=== PATIENT | female | born 1995 | race American Indian/Alaskan Native ===

== ENCOUNTER 2016-03-22 15:22 | Outpatient (CLI) | payer MEDICAID ==
[2016-03-22] MEDS ORDERED: LACTATED RINGERS 500 ML IV ONE (17:33)
[2016-03-22] MEDS ORDERED: VISTARIL PO ONE (18:00)
[2016-03-22] MEDS ORDERED: LACTATED RINGERS 1,000 ML ONE (21:11)
[2016-03-22 23:16] VITALS: BP 127/70
== END 2016-03-22 23:35 | disposition home or self-care (01) ==
LOC: TRG 15:22 → LD 15:23 → TRG 23:35
PROVIDERS: ATTEND Obstetrics & Gynecology
DX: O47.9 False labor, unspecified (principal); Z3A.00 Weeks of gestation of pregnancy not specified
CPT/HCPCS: 59025; J7120; 96360; Q0177

== ENCOUNTER 2017-08-01 05:58 | Emergency (ER) | payer SELFPAY ==
[2017-08-01 06:20] VITALS: BP 122/68
[2017-08-01] MEDS ORDERED: AUGMENTIN 875 MG PO ONE (08:07)
[2017-08-01] MEDS ORDERED: SUDAFED 12 HR PO PRN (08:07)
[2017-08-01] MEDS ORDERED: CLARITIN PO ONE (08:08)
--- NOTE | 2017-08-01 08:33 | Emergency Department Report ---
HPI - General Chief Complaint: Earache Time Seen by Provider: 08/01/17 08:03 - HPI HPI: She is a 22-year-old female with no prior medical history of present's ED complaining of stuffy nose, runny nose, facial pain 1-2 days. Patient states feels like throbbing pain on left side of the face. She did not sustain any trauma or any injuries. Patient states minimal intermittent coughing dry, she denies fevers/chills nausea or vomiting. 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 - Surgical History Past Surgical History?: Yes Additional Surgical History: c sect X2 - Social History Smoking Status: Never Smoker Substance Use Type: None - Medications Home Medications: Home Medications Medication Instructions Recorded Confirmed Last Taken Type Amoxicillin/K Clav Tab [Augmentin 1 each PO BID #10 tablet 08/01/17 Unknown Rx 875MG TAB] Loratadine [Claritin] 10 mg PO DAILY #20 tablet 08/01/17 Unknown Rx Pseudoephedrine ER [Sudafed 12 Hr] 120 mg PO Q12HR PRN #12 tablet 08/01/17 Unknown Rx ED Review of Systems ROS: Stated complaint: SEVERE HEADACHE L SIDE FACE CAN'T SLEEP OR Other details as noted in HPI Constitutional: denies: chills, fever Eyes: denies: eye pain, eye discharge, vision change ENT: congestion (nasal). denies: ear pain, throat pain Respiratory: cough (minimal). denies: shortness of breath, wheezing Cardiovascular: denies: chest pain, palpitations Endocrine: no symptoms reported Gastrointestinal: denies: abdominal pain, nausea, diarrhea Genitourinary: denies: urgency, dysuria, discharge Musculoskeletal: denies: back pain, joint swelling, arthralgia Skin: denies: rash, lesions Neurological: denies: headache, weakness, numbness, paresthesias, confusion Psychiatric: denies: anxiety, depression Hematological/Lymphatic: denies: easy bleeding, easy bruising Physical Exam - Physical Exam Vital Signs: Vital Signs 08/01/17 06:11 Temperature 97.4 F L Pulse Rate 87 Respiratory 20 Rate Blood Pressure 122/68 O2 Sat by Pulse 87 Oximetry Physical Exam: GENERAL: Alert and oriented x3, no apparent distress, Normal Gait, atraumatic. HEAD: Head is normocephalic and a-traumatic. EYES: Extra ocular muscles are intact. Pupils are equal, round, and reactive to light and accommodation. EARS: symetrical, atraumatic, non tender, ear canal clear and moderate cerumen, tympanic membrance non inflamed. There is mild fluid seen behind tympanic membrane left sided. gross auditory nml bilaterally. NOSE: Nose symetrical, Nontender,Nares appeared normal. Maxillary and frontal sinus tenderness MOUTH:Mouth is well hydrated and without lesions. Tonsils nonerythematous or swollen, Uvula midline, Tongue not elevated. Mucous membranes are moist. Posterior pharynx clear, no exudate or lesions. Patent airways. NECK: Supple. No lymphadenopathy or thyromegaly. No C-spine tenderness NEUROLOGIC: The patient is cooperative with no focal neurologic deficits. Cranial nerves II through XII are grossly intact. Normal speech. SKIN: Warm and dry, No lesions, No ulceration or induration present. ED Course Vital Signs 08/01/17 06:11 Temperature 97.4 F L Pulse Rate 87 Respiratory 20 Rate Blood Pressure 122/68 O2 Sat by Pulse 87 Oximetry ED Medical Decision Making - Medical Decision Making 22-year-old female presents with sinusitis ED course: Patient received pseudoephedrine, Claritin and ED Discussed the patient she will need antibiotics for a sinus infection. Vital signs are normal patient is in no acute or respiratory distress Patient has no neuro deficit Discussed to follow up with primary care physician in 3-5 days Patient is sent antibiotics pseudoephedrine Claritin. Critical care attestation.: If time is entered above; I have spent that time in minutes in the direct care of this critically ill patient, excluding procedure time. ED Disposition Clinical Impression: Sinusitis Disposition: DC-01 TO HOME OR SELFCARE Is pt being admited?: No Does the pt Need Aspirin: No Condition: Stable Instructions: Sinusitis (ED), Acute Bacterial Rhinosinusitis (ED) Additional Instructions: Make sure to follow up with the primary care physician as discussed. Take all your medications as you've been prescribed. If you have any worsening symptoms or develop new symptoms please return to ED immediately. Prescriptions: Amoxicillin/K Clav Tab [Augmentin 875MG TAB] 1 each PO BID #10 tablet Loratadine [Claritin] 10 mg PO DAILY #20 tablet Pseudoephedrine ER [Sudafed 12 Hr] 120 mg PO Q12HR PRN #12 tablet PRN Reason: Allergy Symptoms Referrals: PRIMARY CARE,MD [Primary Care Provider] - 3-5 Days [facility] [Outside] - 3-5 Days [facility] [Outside] - 3-5 Days Forms: Accompanied Note, Work/School Release Form(ED) Time of Disposition: 08:56
== END 2017-08-01 09:07 | disposition home or self-care (01) ==
LOC: ED 05:58
DX: J32.9 Chronic sinusitis, unspecified (principal); J45.909 Unspecified asthma, uncomplicated
CPT/HCPCS: 99282

== ENCOUNTER 2017-11-29 09:19 | Emergency (ER) | payer MEDICAID ==
[2017-11-29 09:35] VITALS: BP 108/74
[2017-11-29] MEDS ORDERED: BICILLIN L-A IM ONE (13:00)
[2017-11-29] MEDS ORDERED: DECADRON IM ONE (13:00)
--- NOTE | 2017-11-29 13:03 | Emergency Department Report ---
ED ENT HPI - General Chief complaint: Sore Throat Stated complaint: SORE THROAT/BODY PAIN Time Seen by Provider: 11/29/17 12:56 Source: patient Mode of arrival: Ambulatory Limitations: No Limitations - History of Present Illness Initial comments: Patient is a 22-year-old female said 2 days a sore throat. Patient also states is associated body aches as well as mild cough. Patient denies any nausea vomiting or diarrhea. Patient states pain of the throat is 8 out of 10 with swallowing and she also feels pressure in her ears. - Related Data Previous Rx's Medication Instructions Recorded Last Taken Type Amoxicillin/K Clav Tab [Augmentin 1 each PO BID #10 tablet 08/01/17 Unknown Rx 875MG TAB] Loratadine [Claritin] 10 mg PO DAILY #20 tablet 08/01/17 Unknown Rx Pseudoephedrine ER [Sudafed 12 Hr] 120 mg PO Q12HR PRN #12 tablet 08/01/17 Unknown Rx HYDROcodone/ACETAMINOPHEN 15 ml PO Q6HR PRN #150 solution 11/29/17 Unknown Rx [Hydrocodon-Acetamin 7.5-325/15] Allergies Allergy/AdvReac Type Severity Reaction Status Date / Time No Known Allergies Allergy Unverified 03/22/16 17:31 ED Dental HPI - General Chief complaint: Sore Throat Stated complaint: SORE THROAT/BODY PAIN Time Seen by Provider: 11/29/17 12:56 Source: patient Mode of arrival: Ambulatory Limitations: No Limitations - Related Data Previous Rx's Medication Instructions Recorded Last Taken Type Amoxicillin/K Clav Tab [Augmentin 1 each PO BID #10 tablet 08/01/17 Unknown Rx 875MG TAB] Loratadine [Claritin] 10 mg PO DAILY #20 tablet 08/01/17 Unknown Rx Pseudoephedrine ER [Sudafed 12 Hr] 120 mg PO Q12HR PRN #12 tablet 08/01/17 Unknown Rx HYDROcodone/ACETAMINOPHEN 15 ml PO Q6HR PRN #150 solution 11/29/17 Unknown Rx [Hydrocodon-Acetamin 7.5-325/15] Allergies Allergy/AdvReac Type Severity Reaction Status Date / Time No Known Allergies Allergy Unverified 03/22/16 17:31 ED Review of Systems ROS: Stated complaint: SORE THROAT/BODY PAIN Other details as noted in HPI Comment: All other systems reviewed and negative ED Past Medical Hx - Past Medical History Hx Hypertension: No Hx Diabetes: No Hx Deep Vein Thrombosis: No Hx Renal Disease: No Hx Sickle Cell Disease: No Hx Seizures: No Hx Asthma: Yes Hx HIV: No 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 - Surgical History Additional Surgical History: c sect X2 - Social History Smoking Status: Never Smoker Substance Use Type: None - Medications Home Medications: Home Medications Medication Instructions Recorded Confirmed Last Taken Type Amoxicillin/K Clav Tab [Augmentin 1 each PO BID #10 tablet 08/01/17 Unknown Rx 875MG TAB] Loratadine [Claritin] 10 mg PO DAILY #20 tablet 08/01/17 Unknown Rx Pseudoephedrine ER [Sudafed 12 Hr] 120 mg PO Q12HR PRN #12 tablet 08/01/17 Unknown Rx HYDROcodone/ACETAMINOPHEN 15 ml PO Q6HR PRN #150 solution 11/29/17 Unknown Rx [Hydrocodon-Acetamin 7.5-325/15] ED Physical Exam - General Limitations: No Limitations General appearance: alert, in no apparent distress - Head Head exam: Present: atraumatic, normocephalic - Eye Eye exam: Present: normal appearance - ENT ENT exam: Present: mucous membranes moist, other (mild bilateral tonsillar swelling with erythema exudate. There is also palatal petechiae present.) - Neck Neck exam: Present: normal inspection, lymphadenopathy (anterior cervical lymph nodes) - Respiratory Respiratory exam: Present: normal lung sounds bilaterally. Absent: respiratory distress - Cardiovascular Cardiovascular Exam: Present: regular rate, normal rhythm. Absent: systolic murmur, diastolic murmur, rubs, gallop - GI/Abdominal GI/Abdominal exam: Present: soft, normal bowel sounds - Extremities Exam Extremities exam: Present: normal inspection - Back Exam Back exam: Present: normal inspection - Neurological Exam Neurological exam: Present: alert, oriented X3 - Psychiatric Psychiatric exam: Present: normal affect, normal mood - Skin Skin exam: Present: warm, dry, intact, normal color. Absent: rash ED Course Vital Signs 11/29/17 09:26 Temperature 98.9 F Pulse Rate 102 H Respiratory 18 Rate Blood Pressure 108/74 O2 Sat by Pulse 98 Oximetry ED Medical Decision Making - Medical Decision Making Patient is meeting [facility] criteria for treatment with antibiotics and the patient will be given Bicillin Decadron discharged home with pain meds. Critical care attestation.: If time is entered above; I have spent that time in minutes in the direct care of this critically ill patient, excluding procedure time. ED Disposition Clinical Impression: Exudative pharyngitis Disposition: -01 TO HOME OR SELFCARE Is pt being admited?: No Does the pt Need Aspirin: No Condition: Stable Instructions: Pharyngitis (ED) Referrals: PRIMARY CARE, [Primary Care Provider] - 3-5 Days Time of Disposition: 13:03
== END 2017-11-29 13:36 | disposition home or self-care (01) ==
LOC: ED 09:19
DX: J02.9 Acute pharyngitis, unspecified (principal); J45.909 Unspecified asthma, uncomplicated
CPT/HCPCS: 96372; 99282; J0561

== ENCOUNTER 2018-05-22 11:23 | Emergency (ER) | payer MEDICAID ==
--- NOTE | 2018-05-22 12:08 | Emergency Department Report ---
Chief Complaint: Earache Stated Complaint: EAR INFECTION Time Seen by Provider: 05/22/18 12:06 - HPI History of Present Illness: born deaf l ear co b ear pain no impaction on exam pain l ear when pulling tragus rx none pmh asthma psh none cig none etoh none menses now mse completed MSE screening note: Focused history and physical exam performed. Due to findings the following was ordered: ED Disposition for MSE Condition: Stable
[2018-05-22 12:09] VITALS: BP 108/65
--- NOTE | 2018-05-22 12:11 | Emergency Department Report ---
Minor Respiratory - HPI Chief Complaint: Earache Stated Complaint: EAR INFECTION Time Seen by Provider: 05/22/18 12:06 Duration: 2 Days Pain Location: Ear Severity: mild Minor Respiratory: Yes Rhinorrhea, Yes Able to Tolerate Fluids, Yes Ear Pain, No Sore Throat, No Cough, No Sick Contacts, No Hemoptysis, No Chest Pain, No Shortness of Breath, No Fever Other History: pt to er with b ear pain. deaf in l ear. vss. no fever. ears feel full. no cough. ED Review of Systems ROS: Stated complaint: EAR INFECTION Other details as noted in HPI Comment: All other systems reviewed and negative Constitutional: denies: chills Eyes: denies: eye discharge ENT: as per HPI, ear pain Respiratory: denies: cough Cardiovascular: denies: palpitations Endocrine: denies: see HPI Gastrointestinal: denies: abdominal pain Genitourinary: denies: dysuria Musculoskeletal: denies: back pain Skin: denies: lesions Neurological: denies: weakness Psychiatric: denies: anxiety Hematological/Lymphatic: denies: easy bleeding ED Past Medical Hx - Past Medical History Hx Hypertension: No Hx Diabetes: No Hx Deep Vein Thrombosis: No Hx Renal Disease: No Hx Sickle Cell Disease: No Hx Seizures: No Hx Asthma: Yes Hx HIV: No 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 - Surgical History Past Surgical History?: Yes Additional Surgical History: c sect X2 - Family History Family history: no significant - Social History Smoking Status: Never Smoker Substance Use Type: None - Medications Home Medications: Home Medications Medication Instructions Recorded Confirmed Last Taken Type Amoxicillin/K Clav Tab [Augmentin 1 each PO BID #10 tablet 05/22/18 Unknown Rx 875MG TAB] Fluticasone [Flonase] 1 spray NS QDAY #1 bottle 05/22/18 Unknown Rx Loratadine [Claritin] 10 mg PO DAILY #20 tablet 05/22/18 Unknown Rx predniSONE [Deltasone] 20 mg PO DAILY #5 tablet 05/22/18 Unknown Rx Minor Respiratory Exam - Exam General: Vital signs noted. No distress. Alert and acting appropriately. HEENT: Yes Moist Mucous Membranes, No Pharyngeal Erythema, No Pharyngeal Exudates, No Rhinorrhea, No Conjuctival Injection, No Frontal Tenderness Ear: Left TM Erythema, Both EAC Pain, Neither TM Bulge, Neither EAC Discharge Neck: Yes Supple, No Adenopathy Lungs: Yes Good Air Exchange, No Wheezes, No Ronchi, No Stridor, No Cough, No Labored Respirations, No Retractions, No Use of Accessory Muscles, No Other Abnormal Lung Sounds Heart: Yes Regular, No Murmur Abdomen: Yes Normal Bowel Sounds, No Tenderness, No Peritoneal Signs Skin: No Rash, No Edema Neurologic: Alert and oriented, no deficits. Musculoskeletal: Unremarkable. ED Course Vital Signs 05/22/18 12:06 Temperature 98.1 F Pulse Rate 63 Respiratory 18 Rate Blood Pressure 108/65 O2 Sat by Pulse 100 Oximetry ED Medical Decision Making - Medical Decision Making no impaction simple ear dc home Critical care attestation.: If time is entered above; I have spent that time in minutes in the direct care of this critically ill patient, excluding procedure time. ED Disposition Clinical Impression: Otitis media Disposition: DC-01 TO HOME OR SELFCARE Is pt being admited?: No Does the pt Need Aspirin: No Condition: Stable Instructions: Otitis Media (ED) Additional Instructions: meds as ordered today follow up with ENT if persists referral below nothing in ears no qtips motrin or tylenol for pain diet as tolerated Prescriptions: Amoxicillin/K Clav Tab [Augmentin 875MG TAB] 1 each PO BID #10 tablet Loratadine [Claritin] 10 mg PO DAILY #20 tablet predniSONE [Deltasone] 20 mg PO DAILY #5 tablet Fluticasone [Flonase] 1 spray NS QDAY #1 bottle Referrals: MIAN LAURENT MD [Staff Physician] - 3-5 Days Time of Disposition: 12:10
[2018-05-22] MEDS ORDERED: TRIMOX PO ONE (12:13)
[2018-05-22] MEDS ORDERED: DECADRON IM ONE (12:13)
== END 2018-05-22 12:59 | disposition home or self-care (01) ==
LOC: ED 11:23
DX: H66.93 Otitis media, unspecified, bilateral (principal)
CPT/HCPCS: 96372; 99282; J1100

== ENCOUNTER 2018-06-12 15:02 | Emergency (ER) | payer MEDICAID ==
[2018-06-12 15:22] VITALS: BP 112/56
[2018-06-12] MEDS ORDERED: CLARITIN PO ONE (17:16)
[2018-06-12] MEDS ORDERED: TORADOL IM ONE (17:17)
--- NOTE | 2018-06-12 17:20 | Emergency Department Report ---
Minor Respiratory - HPI Chief Complaint: Earache Stated Complaint: EAR PAIN Time Seen by Provider: 06/12/18 17:16 Pain Location: Ear Severity: mild Minor Respiratory: Yes Able to Tolerate Fluids, Yes Ear Pain, No Rhinorrhea, No Sore Throat, No Cough, No Sick Contacts, No Hemoptysis, No Chest Pain, No Shortness of Breath, No Fever Other History: Patient is a 23-year-old -[place] female who comes to the ER complaining of bilateral ear pain. She was seen earlier this month by us. She also states that she followed up with an ENT. They gave her medicines she is to keep her ear is clean and she reports this cannot tell me the name of which she has been using it. Patient also complaining of a headache. PT also complaining of low left back pain after hitting her back when she fell in the bathtub. This was several days ago. She is ambulatory. PMH. NONE. PSH. NONE. RX. NONE ED Review of Systems ROS: Stated complaint: EAR PAIN Other details as noted in HPI Comment: Unobtainable due to pts medical conditions Constitutional: denies: chills Eyes: denies: eye pain ENT: as per HPI. denies: ear pain Respiratory: denies: cough Cardiovascular: denies: as per HPI, palpitations Endocrine: denies: excessive sweating Gastrointestinal: denies: abdominal pain Genitourinary: denies: urgency Musculoskeletal: as per HPI, back pain Skin: denies: lesions Neurological: as per HPI, headache Psychiatric: denies: anxiety Hematological/Lymphatic: denies: as per HPI, easy bleeding 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 No distress. Alert and acting appropriately. LUNGS CTA NO WHEEZING NO SPINE TENDERNESS AMBULATORY NO DYSURIA NO BRUISING OF BACK NEURO INTACT NO FOCAL NEURO DEF HEENT: Yes Pharyngeal Erythema, Yes Moist Mucous Membranes, No Pharyngeal Exudates, No Rhinorrhea, No Conjuctival Injection, No Frontal Tenderness, No Maxillary Tenderness Ear: Both TM Erythema, Neither TM Bulge, Neither EAC Pain, Neither EAC Discharge Neck: Yes Supple, No Adenopathy Lungs: Yes Good Air Exchange, No Wheezes, No Ronchi, No Stridor, No Cough, No Labored Respirations, No Retractions, No Use of Accessory Muscles, No Other Abnormal Lung Sounds Heart: Yes Regular, No Murmur Abdomen: Yes Normal Bowel Sounds, No Tenderness, No Peritoneal Signs Skin: No Rash, No Edema Neurologic: Alert and oriented, no deficits. Musculoskeletal: Unremarkable. ED Course Vital Signs 06/12/18 15:21 Temperature 98.5 F Pulse Rate 100 H Respiratory 20 Rate Blood Pressure 112/56 O2 Sat by Pulse 99 Oximetry ED Medical Decision Making - Medical Decision Making SIMPLE URTI PT HAS ASHTMA W ALLERGIC S/S POLLEN SEASON SP FALL IN TUB BRUISING HER BACK NEURO INTACT NO POINT TENDERNESS MEDICATED FOR PAIN VSS DC HOME WITH FOLLOW UP Vital Signs 06/12/18 15:21 Temperature 98.5 F Pulse Rate 100 H Respiratory 20 Rate Blood Pressure 112/56 O2 Sat by Pulse 99 Oximetry Critical care attestation.: If time is entered above; I have spent that time in minutes in the direct care of this critically ill patient, excluding procedure time. ED Disposition Clinical Impression: Contusion, back, Ear pain Disposition: DC-01 TO HOME OR SELFCARE Is pt being admited?: No Does the pt Need Aspirin: No Condition: Stable Instructions: Sinusitis (ED) Additional Instructions: HYDRATE WELL WITH WATER MEDS ORDERED TODAY DIET TOLERATED MOTRIN OR TYLENOL FOR PAIN OVER THE COUNTER CERUMENEX TO KEEP EARS CLEAN ACTIVITY TOLERATED Referrals: [facility] [Outside] - 3-5 Days Time of Disposition: 17:17
[2018-06-12] MEDS ORDERED: DELTASONE PO NR (18:00)
== END 2018-06-12 17:33 | disposition home or self-care (01) ==
LOC: ED 15:02
DX: S30.0XXA Contusion of lower back and pelvis, initial encounter (principal); H92.03 Otalgia, bilateral; R51 Headache; J45.909 Unspecified asthma, uncomplicated; W17.89XA Other fall from one level to another, initial encounter; Y93.89 Activity, other specified; Y92.89 Other specified places as the place of occurrence of the external cause; Y99.8 Other external cause status
CPT/HCPCS: 96372; 99282; J1885; J7512

== ENCOUNTER 2018-08-25 14:22 | Emergency (ER) | payer MEDICAID ==
--- NOTE | 2018-08-25 14:40 | Emergency Department Report ---
Blank Doc - Documentation Documentation: This is a 23-year-old female that presents with right flank pain with radiation to right upper abdominal area. This initial assessment/diagnostic orders/clinical plan/treatment(s) is/are subject to change based on patient's health status, clinical progression and re-assessment by fellow clinical providers in the ED. Further treatment and workup at subsequent clinical providers discretion. Patient/guardians urged not to elope from the ED as their condition may be serious if not clinically assessed and managed. Initial orders include: 1- Patient sent to [facility] for further evaluation and treatment 2- labs 3- UA
[2018-08-25 15:16] LABS: Basophils # (Auto) 0.1 K/mm3 (0.0-0.1); Basophils % (Auto) 0.8 % (0.0-1.8); Eosinophils # (Auto) 0.1 K/mm3 (0.0-0.4); Eosinophils % (Auto) 0.9 % (0.0-4.3); Hematocrit 24.3 % (30.3-42.9); Hemoglobin 7.2 gm/dl (10.1-14.3); Lymphocytes # (Auto) 1.2 K/mm3 (1.2-5.4); Lymphocytes % (Auto) 15.9 % (13.4-35.0); Mean Corpuscular HGB Conc 29 % (30-34); Mean Corpuscular Volume 63 fl (79-97); Monocytes # (Auto) 0.7 K/mm3 (0.0-0.8); Monocytes % (Auto) 8.8 % (0.0-7.3); Platelet Count 433 K/mm3 (140-440); Red Blood Count 3.85 M/mm3 (3.65-5.03); Red Cell Distribution Width 19.4 % (13.2-15.2)
[2018-08-25 15:23] LABS: Alanine Aminotransferase 10 units/L (7-56); Albumin 3.4 g/dL (3.9-5); BUN/Creatinine Ratio 12; Blood Urea Nitrogen 6 mg/dL (7-17); Calcium 9.4 mg/dL (8.4-10.2); Hemolysis Index 22
[2018-08-25 16:09] LABS: HCG Qualitative,Urine Negative (Negative)
[2018-08-25 16:14] LABS: Bilirubin,Urine NEG (Negative); Blood,Urine NEG (Negative); Color,Urine Yellow (Yellow); Mucus,Urine 3+ /HPF
--- NOTE | 2018-08-25 16:39 | Emergency Department Report ---
ED Abdominal Pain HPI - General Chief Complaint: Abdominal Pain Stated Complaint: RT SIDE/ABD PAIN Time Seen by Provider: 08/25/18 14:38 Source: patient Mode of arrival: Ambulatory Limitations: No Limitations - History of Present Illness Initial Comments: This is a 23-year-old -French female that presents to the emergency room with right flank pain and chest discomfort for 1 week. Past medical history of asthma. Patient states she is using her inhaler frequently up to 3 times per day with minimal relief. She is also taken DayQuil and NyQuil. She reports chest discomfort and right flank pain that is worse with deep breaths or movement. She also reports a cough that is nonproductive. The patient is a nonsmoker. Last menstrual period was 08/02/2018, A1 miscarriage. She denies nausea, vomiting, diarrhea, fever, and myalgia. MD Complaint: abdominal pain Onset/Timin -: week(s) Location: R flank Radiation: none Migration to: no migration Severity: severe Severity scale (0 -10): 10 Quality: aching Consistency: intermittent Improves With: nothing Worsens With: nothing Associated Symptoms: denies other symptoms Treatments Prior to Arrival: NSAIDs - Related Data Previous Rx's Medication Instructions Recorded Last Taken Type Cetirizine HCl [ZyrTEC] 10 mg PO DAILY #30 capsule 06/12/18 Unknown Rx Fluticasone [Flonase] 1 spray NS QDAY #1 bottle 06/12/18 Unknown Rx predniSONE [Deltasone] 20 mg PO DAILY #5 tablet 06/12/18 Unknown Rx Benzonatate [Tessalon Perles] 100 mg PO Q8HR PRN #30 capsule 08/25/18 Unknown Rx Cetirizine HCl [Zyrtec 10mg tab] 10 mg PO DAILY #30 tablet 08/25/18 Unknown Rx Fluticasone [Flonase] 1 spray NS QDAY #1 bottle 08/25/18 Unknown Rx Ibuprofen [Motrin 800 MG tab] 800 mg PO Q8HR PRN #20 tablet 08/25/18 Unknown Rx metroNIDAZOLE [Flagyl TAB] 500 mg PO Q8HR #21 tablet 08/25/18 Unknown Rx Allergies Allergy/AdvReac Type Severity Reaction Status Date / Time No Known Allergies Allergy Unverified 03/22/16 17:31 ED Review of Systems ROS: Stated complaint: RT SIDE/ABD PAIN Other details as noted in HPI Constitutional: chills. denies: fever ENT: congestion. denies: ear pain, throat pain Respiratory: cough. denies: shortness of breath, wheezing Cardiovascular: denies: chest pain, palpitations Gastrointestinal: abdominal pain. 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 - Surgical History Past Surgical History?: Yes Additional Surgical History: c sect X2 - Social History Smoking Status: Never Smoker Substance Use Type: None - Medications Home Medications: Home Medications Medication Instructions Recorded Confirmed Last Taken Type Cetirizine HCl [ZyrTEC] 10 mg PO DAILY #30 capsule 06/12/18 Unknown Rx Fluticasone [Flonase] 1 spray NS QDAY #1 bottle 06/12/18 Unknown Rx predniSONE [Deltasone] 20 mg PO DAILY #5 tablet 06/12/18 Unknown Rx Benzonatate [Tessalon Perles] 100 mg PO Q8HR PRN #30 capsule 08/25/18 Unknown Rx Cetirizine HCl [Zyrtec 10mg tab] 10 mg PO DAILY #30 tablet 08/25/18 Unknown Rx Fluticasone [Flonase] 1 spray NS QDAY #1 bottle 08/25/18 Unknown Rx Ibuprofen [Motrin 800 MG tab] 800 mg PO Q8HR PRN #20 tablet 08/25/18 Unknown Rx metroNIDAZOLE [Flagyl TAB] 500 mg PO Q8HR #21 tablet 08/25/18 Unknown Rx ED Physical Exam - General Limitations: No Limitations General appearance: alert, in no apparent distress - ENT ENT exam: Present: mucous membranes moist, other (abdomen is mildly congested with clear discharge). Absent: normal orophraynx (erythematous posterior pharynx, uvula midline) - Neck Neck exam: Present: normal inspection - Respiratory Respiratory exam: Present: normal lung sounds bilaterally. Absent: respiratory distress - Cardiovascular Cardiovascular Exam: Present: regular rate, normal rhythm. Absent: systolic murmur, diastolic murmur, rubs, gallop - GI/Abdominal GI/Abdominal exam: Present: soft, tenderness (right upper quadrant and left upper quadrant tenderness), normal bowel sounds. Absent: distended, guarding, rebound, rigid, organomegaly, mass, bruit, pulsatile mass, hernia - Back Exam Back exam: Present: full ROM. Absent: CVA tenderness (R), CVA tenderness (L) - Neurological Exam Neurological exam: Present: alert, oriented X3, normal gait - Psychiatric Psychiatric exam: Present: normal affect, normal mood - Skin Skin exam: Present: warm, dry, intact, normal color. Absent: rash ED Course Vital Signs 08/25/18 14:38 Temperature 98.6 F Pulse Rate 87 Respiratory 18 Rate Blood Pressure 117/74 O2 Sat by Pulse 100 Oximetry ED Medical Decision Making - Lab Data Result diagrams: 08/25/18 14:47 08/25/18 14:47 Lab Results 08/25/18 08/25/18 08/25/18 Range/Units 14:47 14:47 15:12 WBC 7.7 (4.5-11.0) K/mm3 RBC 3.85 (3.65-5.03) M/mm3 Hgb 7.2 L (10.1-14.3) gm/dl Hct 24.3 L (30.3-42.9) % MCV 63 L (79-97) fl MCH 19 L (28-32) pg MCHC 29 L (30-34) % RDW 19.4 H (13.2-15.2) % Plt Count 433 (140-440) K/mm3 Lymph % (Auto) 15.9 (13.4-35.0) % [place] % (Auto) 8.8 H (0.0-7.3) % Eos % (Auto) 0.9 (0.0-4.3) % Baso % (Auto) 0.8 (0.0-1.8) % Lymph # 1.2 (1.2-5.4) K/mm3 [place] # 0.7 (0.0-0.8) K/mm3 Eos # 0.1 (0.0-0.4) K/mm3 Baso # 0.1 (0.0-0.1) K/mm3 Seg Neutrophils % 73.6 H (40.0-70.0) % Seg Neutrophils # 5.7 (1.8-7.7) K/mm3 Sodium 137 (137-145) mmol/L Potassium 3.9 (3.6-5.0) mmol/L Chloride 100.9 (98-107) mmol/L Carbon Dioxide 23 (22-30) mmol/L Anion Gap 17 mmol/L BUN 6 L (7-17) mg/dL Creatinine 0.5 L (0.7-1.2) mg/dL Estimated GFR > 60 ml/min BUN/Creatinine Ratio 12 % Glucose 86 (65-100) mg/dL Calcium 9.4 (8.4-10.2) mg/dL Total Bilirubin 0.30 (0.1-1.2) mg/dL AST 16 (5-40) units/L ALT 10 (7-56) units/L Alkaline Phosphatase 61 (35-129) units/L Total Protein 8.3 H (6.3-8.2) g/dL Albumin 3.4 L (3.9-5) g/dL Albumin/Globulin Ratio 0.7 % Urine Color Yellow (Yellow) Urine Turbidity Slightly-cloudy (Clear) Urine pH 7.0 (5.0-7.0) Ur Specific [place] 1.027 (1.003-1.030) Urine Protein 30 mg/dl (Negative) mg/dL Urine Glucose (UA) Neg (Negative) mg/dL Urine Ketones Tr (Negative) mg/dL Urine Blood Neg (Negative) Urine Nitrite Neg (Negative) Ur Reducing Substances Not Reportable Urine Bilirubin Neg (Negative) Urine Ictotest Not Reportable Urine Urobilinogen 2.0 (<2.0) mg/dL Ur Leukocyte Esterase Tr (Negative) Urine WBC (Auto) 1.0 (0.0-6.0) /HPF Urine RBC (Auto) 1.0 (0.0-6.0) /HPF U Epithel Cells (Auto) 3.0 (0-13.0) /HPF Urine Mucus 3+ /HPF Urine HCG, Qual Negative (Negative) - Radiology Data Radiology results: report reviewed PROCEDURE: XR CHEST ROUTINE 2V TECHNIQUE: PA and lateral chest radiographs were obtained. HISTORY: cough, r/o pneumonia COMPARISONS: None. FINDINGS: Heart: Normal. Mediastinum/Vessels: Normal. Lungs/Pleural space: No infiltrate, effusion, or pneumothorax. Bony thorax: Thoracic dextroscoliosis. IMPRESSION: No pulmonary infiltrates. PROCEDURE: CT abdomen and pelvis with contrast. TECHNIQUE: Computerized axial tomography of the abdomen and pelvis was performed after the IV injection of iodinated nonionic contrast. CT DOSE LENGTH PRODUCT: Not provided mGycm HISTORY: RUQ LUQ tenderness COMPARISONS: None. FINDINGS: The lung bases are clear. There are no pleural effusions. The heart size is normal. The liver, pancreas and spleen appear normal. The gallbladder is present. There is no biliary dilatation. The adrenal glands are not enlarged. Both kidneys appear normal in size and configuration. The abdominal aorta has a normal caliber. There is no retroperitoneal adenopathy. The unopacified gastrointestinal tract is unremarkable. I believe there is a normal appendix present. The bladder, uterus and adnexal regions are unremarkable. There is bilateral spondylolysis of L5. There is mild grade 1 spondylolisthesis at L5-S1. There is a moderate thoracolumbar scoliosis. IMPRESSION: Bilateral spondylolysis of L5. Mild grade 1 spondylolisthesis at L5-S1. Moderate lumbar scoliosis. No evidence of acute disease in the abdomen or pelvis. - Medical Decision Making Patient examined by me and stable. No distress noted. Vitals normal. Obtained labs, chest x-ray, and CT of abdomen and pelvis. Bilateral spondylolysis of L5. Mild grade 1 spondylolisthesis at L5-S1. Moderate lumbar scoliosis. No evidence of acute disease in the abdomen or pelvis. No pulmonary infiltrates. All labs unremarkable. Symptoms are susceptible of gastritis and upper respiratory infection. She is instructed to take Tylenol or ibuprofen for aches and pains, to drink a lot of liquids to stay home and rest. Start flonase, Tessalon Perles, cetirizine, metronidazole, and ibuprofen. Discharged home stable. Educated on care for symptoms. She was given a note to return to work in 3 days. Follow up with Primary Care Provider in 2-3 days. She will return to the emergency room if he does not get better as discussed. Critical care attestation.: If time is entered above; I have spent that time in minutes in the direct care of this critically ill patient, excluding procedure time. ED Disposition Clinical Impression: Rhinorrhea, Right flank pain, Gastroenteritis Abdominal pain Qualifiers: Abdominal location: generalized Qualified Code(s): R10.84 - Generalized abdominal pain Upper respiratory infection Qualifiers: URI type: acute nasopharyngitis (common cold) Qualified Code(s): J00 - Acute nasopharyngitis [common cold] Disposition: DC-01 TO HOME OR SELFCARE Is pt being admited?: No Does the pt Need Aspirin: No Condition: Stable Instructions: Abdominal Pain (ED), Gastroenteritis (ED), Upper Respiratory Infection (ED) Additional Instructions: Frequent hand washing is important to reduce spread. Prompt disinfection of contaminated surfaces with household chlorine bleach- based poultry picking machine tender and washing of soiled clothing and bedding should be advised. If food or water is thought to be contaminated, it should be avoided. Increase fluid intake. Drinks high in sugars such as carbonated soft drinks, fruit juice, and highly sugared liquids should be avoided. Prescriptions: metroNIDAZOLE [Flagyl TAB] 500 mg PO Q8HR #21 tablet Fluticasone [Flonase] 1 spray NS QDAY #1 bottle Ibuprofen [Motrin 800 MG tab] 800 mg PO Q8HR PRN #20 tablet PRN Reason: Pain , Severe (7-10) Benzonatate [Tessalon Perles] 100 mg PO Q8HR PRN #30 capsule PRN Reason: Cough Cetirizine HCl [Zyrtec 10mg tab] 10 mg PO DAILY #30 tablet Referrals: POPPY CAMPOS MD [Primary Care Provider] - 3-5 Days [facility] [place] [Outside] - 3-5 Days [facility] [Outside] - 3-5 Days [facility] [Outside] - 3-5 Days Forms: Work/School Release Form(ED) Time of Disposition: 19:05
--- NOTE | 2018-08-25 17:36 | XRay Report ---
PROCEDURE: XR CHEST ROUTINE 2V TECHNIQUE: PA and lateral chest radiographs were obtained. HISTORY: cough, r/o pneumonia COMPARISONS: None. FINDINGS: Heart: Normal. Mediastinum/Vessels: Normal. Lungs/Pleural space: No infiltrate, effusion, or pneumothorax. Bony thorax: Thoracic dextroscoliosis. IMPRESSION: No pulmonary infiltrates. This document is electronically signed by Cherie Vasquez MD., August 25 2018 05:34:55 PM ET
--- NOTE | 2018-08-25 18:06 | Cat Scan Report ---
PROCEDURE: CT abdomen and pelvis with contrast. TECHNIQUE: Computerized axial tomography of the abdomen and pelvis was performed after the IV inject ion of iodinated nonionic contrast. CT DOSE LENGTH PRODUCT: Not provided mGycm HISTORY: RUQ LUQ tenderness COMPARISONS: None. FINDINGS: The lung bases are clear. There are no pleural effusions. The heart size is normal. The liver, pancre as and spleen appear normal. The gallbladder is present. There is no biliary dilatation. The adrenal glands are not enlarged. Both kidneys appear normal in size and configuration. The abdominal aorta santo s a normal caliber. There is no retroperitoneal adenopathy. The unopacified gastrointestinal tract is unremarkable. I believe there is a normal appendix present. The bladder, uterus and adnexal regions are unremarkable. There is bilateral spondylolysis of L5. There is mild grade 1 spondylolisthesis at L5-S1. There is a moderate thoracolumbar scoliosis. IMPRESSION: Bilateral spondylolysis of L5. Mild grade 1 spondylolisthesis at L5-S1. Moderate lumbar scoliosis. No evidence of acute disease in the abdomen or pelvis. This document is electronically signed by Stevie Plaza MD., August 25 2018 06:04:33 PM ET
[2018-08-25] MEDS ORDERED: TORADOL IM ONE (19:06)
[2018-08-25] MEDS ORDERED: TORADOL ONE (19:07)
[2018-08-25] MEDS ORDERED: PROVENTIL IH ONE (19:10)
[2018-08-25] MEDS ORDERED: TORADOL IV ONE (19:10)
[2018-08-25 19:47] VITALS: BP 118/60
== END 2018-08-25 19:46 | disposition home or self-care (01) ==
LOC: ED 14:22
DX: K52.9 Noninfective gastroenteritis and colitis, unspecified (principal); J00 Acute nasopharyngitis [common cold]; J45.909 Unspecified asthma, uncomplicated; Z98.890 Other specified postprocedural states; Z79.899 Other long term (current) drug therapy
CPT/HCPCS: 36415; 71046; 74177; 80053; 81001; 81025; 85025; 96374; 99284; J1885; Q9967